=== PATIENT | male | born 1950 | race Caucasian/White ===

== ENCOUNTER 2022-09-19 17:38 | Emergency (ER) | payer MEDICARE, BC, SELFPAY ==
[2022-09-19 17:52] VITALS: BP 187/85; PULSE 106; RESP 20; TEMP 38.3; O2SAT 93; BMI 33.5
--- NOTE | 2022-09-19 18:06 | ED.GENADULT ---
HPI - General Adult General Date Seen: 09/19/22 Chief complaint: Sore Throat Stated complaint: Covid+ Diabetic Time Seen by Provider: 09/19/22 17:38 Source: patient Limitations: no limitations History of Present Illness HPI narrative: Patient is a 71-year-old gentleman who presents here ambulatory for evaluation of being a COVID positive person. He developed a feeling of a runny nose sore throat yesterday, and a fever. Low grade. He is taking Tylenol 500 mg every 4 hours for this. He has a slight cough, but he is more worried about the fact as he is a diabetic. Denies any shortness of breath chest pain associated with this does not really have a headache, or neck stiffness. He has noted no rashes. He is fully vaccinated for COVID with 2 primary and 1 new variant vaccination. His is also COVID positive. He is able to drink fine but he eating gives of his throat some issues. Related Data Home Medications Medication Instructions Recorded Confirmed amlodipine 5 mg tablet mg 09/19/22 chlorthalidone 25 mg tablet mg 09/19/22 glimepiride 2 mg tablet mg 09/19/22 insulin glargine-yfgn 100 unit/mL unit subcut 09/19/22 (3 mL) subcutaneous pen (Semglee (insulin glargine-yfgn) Pen) losartan 100 mg tablet mg 09/19/22 metformin 500 mg tablet,extended mg PO 09/19/22 release 24 hr metoprolol tartrate 25 mg tablet mg 09/19/22 rosuvastatin 40 mg tablet mg 09/19/22 Previous Rx's Medication Instructions Recorded nirmatrelvir 150 mg-ritonavir 100 See Rx Instructions PO .COMPLEX 09/19/22 mg tablets in a dose pack (EUA) #20 ea (Paxlovid) Allergies Allergy/AdvReac Type Severity Reaction Status Date / Time No Known Drug Allergies Allergy Verified 09/19/22 17:51 Review of Systems Status of ROS: Reports: 10 or more systems reviewed and unremarkable except as noted in History and below PFSH PFS Social History Smoking Status: Former smoker Do you use any of these nicotine containing products: None How often do you have a drink containing alcohol: never AUDIT-C Alcohol total score: 0 Non-prescribed substance use: denies use service: No Exam Narrative: Exam Narrative: Patient is speaking normally,no problem with slurring words, oriented x3. Head eyes ears nose and throat exam show equal pupils, no scleral icterus, extraocular muscles are normal, no facial droop, speech is normal, trachea normal and midline. No meningismus neck is supple. Thyroid normal midline palpable not enlarged. Chest shows symmetrical rise bilaterally, normal auscultation with no wheezes, no increased work of breathing, no overt bruising or lesions seen, no tenderness is noted on auscultation. Heart sounds normal with no S3-S4 no murmurs clicks or gallops. Abdomen shows no obvious masses or hepatosplenomegaly, no organomegaly, bowel sounds are normal in all quadrants. No tenderness is noted also in all quadrants. Upper and lower extremities show normal power, normal range of motion, pulses are normal, sensations normal, fine motor movements are normal, pelvis is stable to rocking. Cervical spine shows normal range of motion, and palpably not tender. Thoracic spine shows normal range of motion, and palpably not tender, lumbar spine shows no tenderness to palpation percussion and is otherwise normal range of motion. Skin shows no rashes, petechiae or eccymosis. Const: Vital Signs, click to edit/add: Vital Signs - 24 hr 09/19/22 17:52 09/19/22 18:10 Temperature 100.9 F H 100.7 F H Pulse Rate [Left P ulse Oximeter] 106 H Respiratory Rate 20 Blood Pressure [Ri ght Upper Arm] 187/85 H Pulse Oximetry 93 Oxygen Delivery Me thod Room Air Documenting provider has reviewed patient's vital signs: yes Course Course Hospital Course: We will go ahead and check a basic metabolic profile, he bit good candidate for Paxlovid, I will review any interaction dump grounds checker. Ibuprofen for the discomfort. His renal function was borderline at 59, with GFR, we will have to use the half strength Paxovid, along with modification to his amlodipine and rosuvastatin after reviewing his medications in the liver pool interaction dump grounds checker Vital Signs Vital signs: Initial Vital Signs Temperature 100.9 F H 09/19/22 17:52 Temperature Source Temporal Artery Scan 09/19/22 17:52 Pulse Rate 106 H 09/19/22 17:52 Respiratory Rate 20 09/19/22 17:52 Blood Pressure 187/85 H 09/19/22 17:52 Blood Pressure Mean 119 09/19/22 17:52 Blood Pressure Position Sitting 09/19/22 17:52 Pulse Oximetry 93 09/19/22 17:52 Oxygen Delivery Method 09/19/22 17:52 Vital Signs Temperature 100.9 F H 09/19/22 17:52 Pulse Rate 106 H 09/19/22 17:52 Respiratory Rate 20 09/19/22 17:52 Blood Pressure 187/85 H 09/19/22 17:52 Pulse Oximetry 93 09/19/22 17:52 Oxygen Delivery Method 09/19/22 17:52 Temperature 100.7 F H 09/19/22 18:10 Pulse Rate 106 H 09/19/22 17:52 Respiratory Rate 20 09/19/22 17:52 Blood Pressure 187/85 H 09/19/22 17:52 Pulse Oximetry 93 09/19/22 17:52 Oxygen Delivery Method 09/19/22 17:52 Medical Decision Making MDM Narrative Medical decision making narrative: Life-threatening differential diagnosis is include meningitis, encephalitis, pneumonia, intra-abdominal infection, bacteremia, other differential diagnosis include but are not limited to viral upper respiratory tract infection, strep, urinary tract infection, skin infection, osteomyelitis, influenza, fungal infections, diskitis, epidural abscess, or fever of unknown origin. Lab Data Labs: Lab Results 09/19/22 Range/Units 18:16 Sodium 138 (135-149) mmol/L Potassium 4.2 (3.6-5.1) mmol/L Chloride 100 (96-114) mmol/L Carbon Dioxide 29 (20-32) mmol/L BUN 20 (7-30) mg/dL Creatinine 1.3 (0.5-1.5) mg/dL Estimated Creat Clear 51.88 Estimated GFR 59 ml/min Glucose 261 H (60-115) mg/dL Calcium 9.1 (8.4-10.6) mg/dL Discharge Plan Discharge Clinical Impression: COVID-19 Patient Disposition: Home, Self-Care Condition: Stable Instructions: How To Wash Your Hands (ED), COVID-19 (Coronavirus Disease 2019) (ED), COVID-19 and Chronic Health Conditions (ED), COVID-19: Slow the Coronavirus Spread (ED), Face Coverings (Masks) and COVID-19 (ED) Additional Instructions: Home rest use of Tylenol /ibuprofen, limit your acetaminophen consumption to 3 g total and 24 hours, ibuprofen 600 mg p.o. t.i.d. should also be use. Start the Paxlovid tomorrow, prescription sent to your pharmacy. You need to stop your cholesterol medication (rosuvastatin) in restart this 3 days after her done the prescription for the COVID medication, I would also suggest cutting back to every other day your amlodipine (blood pressure medication) go back to your normal dosing once here stop taking the COVID medication. Return if your oxygen saturations are less than 90% lots of vomiting, chest pain or other concerns. Activity Level: No Restrictions Discharge Diet: Diabetic Prescriptions: New Paxlovid (EUA) 150-100 mg tablets,dose pack See Rx Instructions .ROUTE .COMPLEX Qty: 20 0RF Rx Instructions: orally per package directions No Action chlorthalidone 25 mg tablet amlodipine 5 mg tablet glimepiride 2 mg tablet losartan 100 mg tablet metformin 500 mg tablet extended release 24 hr PO Label Comments: TAKE 4 TABLETS BY MOUTH EVERY DAY WITH DINNER rosuvastatin 40 mg tablet metoprolol tartrate 25 mg tablet insulin glargine-yfgn [Semglee(insulin glarg-yfgn)Pen] 100 unit/mL (3 mL) insulin pen SUBCUT Label Comments: ADMINISTER 45 UNITS UNDER THE SKIN EVERY NIGHT AT BEDTIME Follow Up/Referrals: Vance Zhang MD [Primary Care Provider] - Stand Alone Forms: [facility] Info Instructions
[2022-09-19 18:10] VITALS: TEMP 38.2
[2022-09-19] MEDS: IBUPROFEN 600 MG TABLET PO (18:10)
[2022-09-19 18:40] LABS: Chloride* 100 mmol/L (96-114); Potassium* 4.2 mmol/L (3.6-5.1); Sodium* 138 mmol/L (135-149)
[2022-09-19 18:43] LABS: Blood Urea Nitrogen* 20 mg/dL (7-30); Carbon Dioxide* 29 mmol/L (20-32); Creatinine* 1.3 mg/dL (0.5-1.5); Est. Creatinine Clearance* 51.88; Estimated Glomerular Filt Rate 59 ml/min
[2022-09-19 18:44] LABS: Calcium* 9.1 mg/dL (8.4-10.6); Glucose* 261 mg/dL (60-115)
[2022-09-19 19:03] VITALS: BP 187/85; PULSE 106; RESP 20; TEMP 38.2
--- NOTE | 2022-09-19 20:32 | ED.NURSE ---
called about meds given to pt, info ok'd by pt.
--- NOTE | 2022-09-20 11:23 | ED.NURSE ---
Pt called to inform that his pharmacy did not have the rx for paxlovid that he needed. Advised pt to check with pharmacy if they could sent the rx to a different pharmacy. If not able to send rx to different pharmacy, pt to call back to ED.
--- NOTE | 2022-09-20 15:10 | ED.NURSE ---
Antony called for decreased dose of Paxlovid because of patients creatinine clearance. Dr. Mahi stoll with the decreased dose of paxlovid.
== END 2022-09-19 19:03 | disposition home or self-care (01) ==
PROVIDERS: Emergency Provider Family Medicine; PCP Family Medicine
DX: U07.1 COVID-19 (principal)
CPT/HCPCS: 36415; 80048; 99283; A9270